=== PATIENT | female | born 1975 | race Caucasian/White ===

== ENCOUNTER 2022-05-07 01:02 | Day surgery (SDC) | payer OTHER, SELFPAY ==
[2022-04-30 14:42] VITALS: BMI 26.5
--- NOTE | 2022-04-30 14:43 | PC.NURSE ---
Report to the Outpatient Waiting Room, entrance under the green pavilion located off [facility], at time _0900_ on date _[id number]_. Planned Procedure Time: _1100_. Time changes happen often and if your time is changed the preop area will call you the afternoon before. - You and your visitor will be asked to self-screen and do not enter if you have any COVID symptoms. - We encourage only one visitor and NO visitors under age 16 are allowed at this time. Your visitor will receive communication by the phone number that is given day of service. - The patient visitor is requested to social distance or may leave the building when not with patient due to restrictions. - A mask is required within the hospital. Patients may have clear liquids (water, carbonated beverages, clear teas, apple juice) until 3 hours prior to surgery with a maximum of 20 ounces. - No food from midnight until time of surgery Take the following medications with a SIP of water the morning of surgery: ____Tramadol if needed. Medications to discontinue per physician ____None Date to take last dose Please no make-up, nail barbadian, hairspray, perfume, deodorant, or body powder the day of surgery. No jewelry (including any body piercings) or valuables the day of surgery, leave them at home. Please take a shower or bath the night before, or the morning of, surgery with an antibacterial soap. Wear comfortable, loose fitting clothing. - Jewelry must be removed prior to entering the operating room. Rings and piercings that are not removed may be cut off. - The hospital will not accept responsibility for valuables. - Please leave all valuables, including medications, at home the day of surgery. If you are going home after surgery, a licensed route sales delivery driver must drive you home. - NO public transportation without another adult. - We recommend that an adult stay with you for 24 hours following discharge. - We also recommend that you do not drive, make important decision, drink alcoholic beverages, or take any drugs that were not prescribed by your health care provider for at least 24 hours after your discharge time. Follow any additional instructions given to you from your surgeon. If you or anyone in your household have experienced Covid symptoms in the past week, please notify your surgeon or the nurse liaison at the phone number below for possible testing. Telephone instructions given to __Patient___and asked if any additional questions and then verbalized understanding. Patient advised to call surgeon office or pre surgery nurse liaison [phone] if any additional questions.
--- NOTE | 2022-05-06 13:45 | P.PNAN_ITS ---
Anes - Initial Pre Proc Eval Procedure: Operation Date: 05/07/22 11:00 Proposed Procedures p Abdominoplasty with Abdominal Liposuction - Guy Mai MD Date/Time: 05/06/22 13:45 Surgeon: Guy Mai MD Pre Op Diagnosis: Skin Laxity Patient Data Age: 46 Gender: F Height: 1.6 m Weight: 68 kg Allergies Allergy/AdvReac Type Severity Reaction Status Date / Time pregabalin [From Lyrica] AdvReac Mild Nausea and Verified 05/07/22 09:05 Vomiting Home Medications Medication Instructions Recorded Confirmed Type tramadol 50 mg tablet 50 mg PO Q6H PRN Pain 01/27/22 04/30/22 History cyclobenzaprine 10 mg tablet 10 mg PO BID PRN Muscle Spasm 04/30/22 04/30/22 History Patient hx anesthesia problems: none Family hx anesthesia problems: none Results Review: All pre-operative results and documents have been reviewed as part of the pre- operative evaluation. FOR[facility]LY [facility] Past Medical History Medical History (Updated 05/06/22 @ 13:46 by Kameron Lacy MD) Chronic neck pain Skin laxity Surgical History Surgical History (Updated 01/27/22 @ 16:55 by Shameka Saenz) History of hysterectomy History of tonsillectomy Family History Family History (Updated 01/27/22 @ 16:56 by Shameka Saenz) Mother Rheumatoid arthritis Social History Social History (Updated 01/27/22 @ 16:56 by Shameka Saenz) Smoking status: Never smoker Alcohol intake: never Living arrangements: with family Spiritual care concerns: No Anes - Eval Final PreProcedure Day of Procedure 05/06/22 13:45 Patient weight: overweight Heart: regular rate and rhythm Lungs: clear to auscultation and normal air movement Airway: Mallampati scale class II Neurological: alert and oriented Last oral intake: >/= 8 hours ASA classification: II Emergent: no Anesthetic plan: proceed Anesthesia type and monitoring: general LMA and ETT Results Review: All pre-operative results and documents have been reviewed as part of the pre- operative evaluation. Informed Consent: The patient's anesthetic plan and its attendant risks and benefits were discussed with the patient/family/POA. Questions were solicited and answers provided to the satisfaction of the patient/family/POA.
[2022-05-07] VITALS (11 sets, daily range): BP systolic 102–133; BP diastolic 61–97; PULSE 87–130; RESP 12–22; TEMP 36.4–36.7; O2SAT 95–100; BMI 27.1
[2022-05-07] MEDS: LACTATED RINGERS 1,000 ML 30 ML IV CONT ×2 (09:20→13:24)
--- NOTE | 2022-05-07 09:38 | WPDHPUPDATE1 ---
History and Physical Update Update Date/Time: 05/07/22 09:38 History and Physical has been reviewed, including an updated exam of the patient. There are NO changes in the patient's condition. Risks, benefits, and alternatives have been discussed and questions answered. Patient agrees to proceed with procedure.
--- NOTE | 2022-05-07 09:38 | W.PM.PROC2 ---
Procedure Note - Detailed Date of Procedure 05/07/22 Pre-op Diagnosis Skin Laxity Post-op Diagnosis Same Procedure Performed Progressive tension abdominoplasty with suction lipectomy Surgeon Guy Mai MD Anesthesia General Findings Lipoaspirate 2350 cc Tissue removed 1883.6 grams Description of Procedure They are here today for abdominoplasty. Previously and again today the risks, benefits, alternatives were discussed in extensive detail. I wanted them to be very realistic about the risks involved as well as expectations. We discussed aftercare and what to monitor for. I was very upfront about the risks of wound breakdown leading to loss of skin, open wounds, and need for additional procedures with permanent abdominal deformity. We discussed DVT/PE risks and management. Made sure answered all of their questions to their satisfaction today and consent was obtained. They were marked in the preoperative holding area with their verification. The patient was taken to the operating room placed supine on the operating table. Anesthesia was provided by anesthesiology. A Longo catheter was started. They were prepped and draped in a standard sterile fashion. A surgical time-out was taken. I placed the patient in a flexed position to verify the upper and lower markings would reach. I then placed supine. A thorough abdominal examination was completed. Stab incisions were made and tumescent solution infiltrated. Once adequate time was allowed for hemostasis a 5mm basket cannula was utilized to complete suction lipectomy based on S.A.F.E. technique in multiple planes and passes. There were turned to bilateral lateral decubitus position with care taken to protect them for injury during this process. Suction lipectomy continued to result based on pre-operative planning, intra-operative observation, and rolling pinch test which were in full agreement. A 10 blade was used to make the upper incision. I continued dissection down to the level of fascia. Elevated just what was necessary for repair of the diastasis. I then again flexed the bed to verify the upper skin flap would reach the lower markings without tension. Once verified I placed her supine once again and a 10 blade used to make the lower incision. I elevated up to level the umbilicus and left the umbilicus intact on a well-vascularized stalk. The intervening tissue was removed. A 2 mm blunt cannula with 0.5% bupivicaine was injected deep to the fascia bilaterally. I plicated the diastasis recti using 0 PDO stratafix barbed suture. This was in 2 separate layers using 2 separate sutures as well. I repaired around the umbilicus leaving plenty of room for well-vascularized stalk of the umbilicus with 2-0 PDS. I also repaired lateral to the rectus using two layers of 0 PDO stratafix. The patient was flexed and starting from superior to inferior began plication using 2-0 Vicryl to obliterate all space in a standard progressive tension fashion. At the umbilicus I marked out the location of the skin and inset this with 3-0 Monocryl and 4-0 Vicryl. I continued the remainder of the plication using 2-0 Vicryl until I reached my lower planned scar line. I trimmed any excess skin of the upper flap making sure this was a tension-free closure. I then approximated using a 3 point suture with 2-0 Vicryl followed by 3-0 stratafix ,running subcuticular 4-0 Monocryl, and tissue glue. Fluffs and an abdominal binder were placed. The patient was transferred to the bed in a flexed position. Awoken and taken to the PACU without difficulty. All instrument and sponge counts were correct at the end of the case. Estimated Blood Loss 40 Drains No Packing No Pathology None sent Complications No immediate complications Condition Stable Disposition PACU
[2022-05-07] MEDS: ceFAZolin 2 GM/D5W 50 ML 2 GM/50 ML BAG IVPB (09:41)
[2022-05-07] MEDS: TRANEXAMIC ACID 1,000MG/ISO100 1,000 MG/100 ML BAG 200 MG IVPB (09:51)
[2022-05-07 10:15] LABS: Urine Cotinine NEGATIVE
[2022-05-07] MEDS: LACTATED RINGERS IRRIG 1,000 ML, LIDOCAINE HCL 1% LOCAL INJ 50 ML, EPINEPHrine HCL INJ ... INFILTRATE ×2 (10:50→12:56)
[2022-05-07] MEDS: BUPIVACAINE/EPINEPHRINE 0.25% 10 ML VIAL 60 ML INFILTRATE (10:54)
[2022-05-07] MEDS: fentaNYL CITRATE INJ (*CRX) 100 MCG/2 ML VIAL 25 MCG IV PUSH ×8 (13:40→14:29)
--- NOTE | 2022-05-07 14:47 | PC.NURSE ---
Patient transferred to post room #284 via ( bed ). Support person present. Oriented to unit, room, information board, rooming in, admission packet and security measures. Patient verbalizes understanding.
[2022-05-07] MEDS: MORPHINE SULFATE (*CRX) 2 MG/ML INJ IV PUSH (15:26)
[2022-05-07] MEDS: LACTATED RINGERS 1,000 ML 125 ML IV CONT (15:31)
[2022-05-07] MEDS: oxyCODONE/ACETAMINOPHEN (*CRX) 5-325 MG TABLET PO ×2 (16:21→22:22)
[2022-05-07] MEDS: carisoprodoL (*CRX) 350 MG TABLET PO ×2 (17:25→23:37)
[2022-05-07] MEDS: GABAPENTIN 300 MG CAPSULE PO (17:25)
[2022-05-07] MEDS: KETOROLAC 15 MG/ML VIAL (*BKC) IV PUSH (20:49)
[2022-05-07] MEDS: DOCUSATE SODIUM 100 MG CAPSULE PO (20:49)
[2022-05-07] MEDS: ENOXAPARIN 40 MG/0.4 ML SYRINGE SUB-Q (20:50)
[2022-05-07] MEDS: ONDANSETRON INJ 4 MG/2 ML VIAL IV PUSH (21:06)
[2022-05-08] VITALS: BP 110/74; PULSE 106; RESP 18; TEMP 36.8; O2SAT 100
[2022-05-08 04:30] VITALS: BP 89/62; PULSE 110; RESP 18; TEMP 36.8; O2SAT 99
[2022-05-08] MEDS: oxyCODONE/ACETAMINOPHEN (*CRX) 5-325 MG TABLET PO ×3 (04:41→16:03)
[2022-05-08] MEDS: carisoprodoL (*CRX) 350 MG TABLET PO ×2 (05:31→11:41)
--- NOTE | 2022-05-08 06:20 | WPDPN ---
Progress Note: A&P Assessment and Plan (1) Skin laxity: Code(s): L57.4 - Cutis laxa senilis Status: Acute Assessment and Plan: Doing well after progressive tension abdominoplasty with suction lipectomy. Will discharge home. I will see her back. Today we had a lengthy discussion about the care. Activity limitations. What to monitor for. What is an emergency and when to proceed to ER/dial 911. She understands with all other questions or concerns call us at any time. I will see her back. Subjective Date/time seen: 05/08/22 06:20 Interval history: She is doing well after progressive tension abdominoplasty with suction lipectomy. No fevers or chills. No nausea vomiting. No shortness of breath. Chest pain. No calf tenderness. She has ambulated to the restroom and been able to urinate. Review of Systems Review of Systems: All systems reviewed & are unremarkable except as noted in HPI and below Exam Narrative: Alert oriented no obvious distress Respiratory unlabored Abdomen soft. No signs of infection. No hematoma. No seroma. Good color and capillary refill. No calf tenderness. Negative Homans. Objective Data Vital Signs Vital Signs: Vital Signs - 24 hr 05/07/22 08:55 05/07/22 13:24 05/07/22 13:35 Temperature 36.7 C 36.4 C Pulse Rate 87 130 H 128 H Respiratory Rate 16 20 22 H Blood Pressure 133/97 H 106/63 106/61 Pulse Oximetry 100 99 100 Oxygen Delivery Room Air Simple Face Mask Simple Face Mask Oxygen Flow Rate 8 8 05/07/22 13:45 05/07/22 14:00 05/07/22 14:15 Temperature Pulse Rate 115 H 116 H 106 H Respiratory Rate 17 19 13 Blood Pressure 107/70 115/68 104/71 Pulse Oximetry 99 97 95 Oxygen Delivery Simple Face Mask Room Air Room Air Oxygen Flow Rate 10 05/07/22 14:30 05/07/22 14:37 05/07/22 14:50 Temperature 36.5 C Pulse Rate 107 H 117 H 106 H Respiratory Rate 13 12 14 Blood Pressure 105/75 102/72 108/73 Pulse Oximetry 95 97 98 Oxygen Delivery Room Air Room Air Oxygen Flow Rate 05/07/22 16:31 05/07/22 16:31 05/07/22 20:00 Temperature 36.7 C Pulse Rate 106 H 108 H Respiratory Rate 16 18 Blood Pressure 115/77 Pulse Oximetry 100 99 Oxygen Delivery Room Air Room Air Oxygen Flow Rate 05/07/22 20:00 05/08/22 00:00 05/08/22 00:00 Temperature 36.6 C 36.8 C Pulse Rate 108 H 106 H 106 H Respiratory Rate 18 18 18 Blood Pressure 107/75 110/74 Pulse Oximetry 99 100 100 Oxygen Delivery Room Air Oxygen Flow Rate 05/08/22 04:30 05/08/22 04:30 Temperature 36.8 C Pulse Rate 110 H 110 H Respiratory Rate 18 18 Blood Pressure 89/62 L Pulse Oximetry 99 99 Oxygen Delivery Room Air Oxygen Flow Rate Intake/Output Intake/Output: Intake & Output 05/05/22 05/06/22 05/07/22 05/08/22 23:59 23:59 23:59 23:59 Intake Total 950 Output Total 450 Balance 500 Meds/Results Medications: Active Medications Generic Name Dose Route Start Last Admin Trade Name Freq PRN Reason Stop Dose Admin Carisoprodol 350 mg 05/07/22 18:00 05/08/22 05:31 Carisoprodol (*Crx) 350 Mg Tablet PO 350 mg Q6HR HERMINIA Administration Cyclobenzaprine HCl 10 mg 05/07/22 14:39 Cyclobenzaprine Hcl 10 Mg Tablet PO BID PRN Muscle Spasm Diazepam 5 mg 05/07/22 13:11 Diazepam (*Crx) 5 Mg Tablet PO TID PRN Anxiety Docusate Sodium 100 mg 05/07/22 21:00 05/07/22 20:49 Docusate Sodium 100 Mg Capsule PO 100 mg Q12HR HERMINIA Administration Enoxaparin Sodium 40 mg 05/07/22 20:00 05/07/22 20:50 Enoxaparin 40 Mg/0.4 Ml Syringe SUB-Q 40 mg DAILY HERMINIA Administration Gabapentin 300 mg 05/07/22 17:00 05/07/22 17:25 Gabapentin 300 Mg Capsule PO 300 mg TID HERMINIA Administration Lactated Ringer's 1,000 mls @ 125 mls/hr 05/07/22 13:15 05/07/22 15:31 Lr - Lactated Ringers Iv IV CONT 125 mls/hr .Q8H HERMINIA Administration Ketorolac Tromethamine 15 mg 05/07/22 13:11 05/07/22 20
--- NOTE | 2022-05-08 06:24 | P.DS_ITS ---
DS: Admitting Diagnosis Discharge Date 05/08/2022 Admitting Diagnosis Skin laxity DS: Discharge Diagnosis Discharge Diagnosis (1) Skin laxity: Code(s): L57.4 - Cutis laxa senilis Status: Acute DS: Summary Hospital Course Hospital Course: She underwent progressive tension abdominoplasty with suction lipectomy. Postoperatively monitor. She has done very well. Pain controlled. Ambulating. Tolerating diet. Will plan for discharge home. Time Spent with Patient Time attestation: Total time spent providing and/or coordinating discharge services: Exam Narrative: Alert oriented no obvious distress Respiratory unlabored Abdomen soft. No signs of infection. No hematoma. No seroma. Good color and capillary refill. No calf tenderness. Negative Homans. DS: Data Data Completed and Pending Labs on day of discharge: Labs from last 24 hours 05/07/22 09:04 Cotinine Negative Discharge Plan Discharge Patient Disposition: Home, Self-Care Discharge Instructions: POST OPERATIVE DISCHARGE INSTRUCTIONS GUY MAI M.D. [facility] [address] [place] [address] * No driving for 24 hours after anesthesia and while you are taking pain medication. * Take all prescribed medication as directed * Diet as tolerated. * No lifting or activity that raises blood pressure for 48 hours. * Regular walking / ambulation. * May shower 24 hours after surgery. Once you shower do not take pain medication before showering as the combination of medication and heat may cause you to feel dizzy or pass out. * No pools or tubs for 2 weeks. * Slowly stand up straight as tolerated. * No straining or lifting more than 20 pounds. * If no bowel movement within 24 hours may use laxative. * Call with any questions or concerns. * Dressing Care: Continue abdominal binder / foam 23 hours per day. If you have any questions or concerns, please call the office . If it is after hours you will be directed to the weight and balance control agent exchange. Shortness of breath, chest pain, or other medical emergency dial 911 / proceed to the Emergency Room. Stand Alone Forms: General Discharge Instructions Follow-up/Referrals: Guy Mai MD [Physician] - 1 Week Discharge Medications: Continued tramadol 50 mg tablet 50 mg PO Q6H PRN (Reason: Pain) cyclobenzaprine 10 mg tablet 10 mg PO BID PRN (Reason: Muscle Spasm)
[2022-05-08 07:00] VITALS: BP 54/31; PULSE 83; RESP 18; TEMP 36.8; O2SAT 97
[2022-05-08] MEDS: GABAPENTIN 300 MG CAPSULE PO (08:55)
[2022-05-08] MEDS: DOCUSATE SODIUM 100 MG CAPSULE PO (08:55)
--- NOTE | 2022-05-08 08:57 | WPDANESPN ---
Anes - Prog Note Post-Op Date/Time: 05/08/22 08:57 Cardiovascular status: normal Respiratory status: normal Airway patency: baseline Mental status: baseline Post-Op hydration status: normal Vital Signs: Last Vital Signs Temp 36.8 C 05/08/22 07:00 Pulse 83 05/08/22 07:00 Resp 18 05/08/22 07:00 BP 54/31 L 05/08/22 07:00 Pulse Ox 97 05/08/22 07:00 O2 Del Method Room Air 05/08/22 04:30 O2 Flow Rate 10 05/07/22 13:45 Pain Score (VAS): 310 I/O: Intake & Output 05/07/22 05/08/22 05/08/22 23:59 07:59 15:59 Intake Total 400 Output Total 450 Balance -50 05/07/22 09:04 Cotinine Negative Post-procedural complaints: nausea (Resolved this morning) Patient Feedback: Patient satisfied with anesthetic care.
[2022-05-08 10:30] VITALS: BP 94/65; PULSE 109
[2022-05-08 12:30] VITALS: BP 93/62; PULSE 102
--- NOTE | 2022-05-10 14:31 | PHAR ---
Percocet 5mg dose administered 05/08 at 10:29 should have been #2 tablets per OB Director. An additional tablet charged to patient. This resolves a supply discrepancy
== END 2022-05-08 17:10 | disposition home or self-care (01) ==
LOC: ANHSURGERY 09:39 → ANHOB2 14:58
PROVIDERS: Visit Provider Surgery Plastic and Reconstructive Surgery
PROC: (CPT 15830; principal; 2022-05-07 11:00)
DX: Z41.1 Encounter for cosmetic surgery (principal); L57.4 Cutis laxa senilis
CPT/HCPCS: 15830; 15847; 15877; 80307; 99199; A9270; J0171; J0690; J1100; J1650; J1885; J2250; J2270; J2370; J2405; J2704; J3010; J7120

== ENCOUNTER 2022-06-12 13:27 | Emergency (ER) | payer SELFPAY ==
--- NOTE | 2022-06-12 13:30 | ED.FEMALEGU ---
HPI - Female Genitourinary General Chief complaint: Urogenital-Female Stated complaint: Possible UTI Time Seen by Provider: 06/12/22 13:47 Source: patient and RN notes reviewed Mode of arrival: ambulatory Limitations: no limitations History of Present Illness HPI Narrative: 46-year-old female presents concern for urinary tract infection. She reports dysuria, frequency for 4-5 days. She reports she took azo earlier this morning. She denies fever, aches, chills, sweats. Reports she has abdominal discomfort from her recent abdominal surgery, muscle tightening and skin removal. MD elicited complaint: UTI Related Data Allergies Allergy/AdvReac Type Severity Reaction Status Date / Time pregabalin [From Lyrica] AdvReac Mild Nausea and Verified 06/12/22 13:46 Vomiting Review of Systems Review of Systems: CONSTITUTIONAL: Denies malaise, chills, sweats, or fever. CARDIOVASCULAR: Denies chest pain, palpitations, or edema. RESPIRATORY: Denies cough or dyspnea. GASTROINTESTINAL: Denies abdominal pain, nausea, vomiting, diarrhea GENITOURINARY: Reports dysuria, frequency denies urgency, suprapubic pressure. Denies flank pain or hematuria. SKIN: Denies rash or itching. MUSCULOSKELETAL: Denies back pain or myalgia. All systems reviewed & are unremarkable except as noted in HPI and below PMFSH Past Medical History Medical History (Updated 06/12/22 @ 13:56 by Katherin Velasquez NP) Chronic neck pain Skin laxity Surgical History Surgical History (Updated 01/27/22 @ 16:55 by Shameka Saenz) History of hysterectomy History of tonsillectomy Family History Family History (Updated 01/27/22 @ 16:56 by Shameka Saenz) Mother Rheumatoid arthritis Social History Social History (Updated 01/27/22 @ 16:56 by Shameka Saenz) Smoking status: Never smoker Alcohol intake: never Spiritual care concerns: No Comments At time of signature, agree with nursing past medical, surgical, social and family history. There is no relevant family history pertinent to the presenting complaint Exam Narrative: GENERAL: Well-appearing, well-nourished, and in no acute distress. HEAD: Normocephalic. EYES: PERRLA, conjunctivae clear. NECK: Supple. No lymphadenopathy CHEST: Clear to auscultation. No respiratory distress. HEART: Regular rate and rhythm. ABDOMEN: Soft, nontender upon palpation, nondistended, normal active bowel sounds, no palpable or pulsatile masses, no guarding. No CVA tenderness SKIN: Warm, dry, no rash. NEURO: Alert and oriented x3. PSYCH: Normal mood and affect Course Course Emergency Course: Patient is aware of diagnosis, understands and agrees to treatment plan. Anticipatory guidance given. Patient agrees to follow-up as directed and is aware of reasons to seek care at the emergency department. Portions of this record may have been created with voice recognition software Level of Care: Express Care Visit Vital Signs Vital signs: Reviewed. MDM - Female Genitourinary MDM Narrative Medical decision making narrative: Exam findings and UA show no acute concerns or changes; patient is non-toxic appearing and is in no distress. Patient is appropriate for outpatient treatment and follow-up. Differential Diagnosis Differential diagnosis: Likely urinary tract infection and cystitis Critical Care Time Critical Care Time Critical Care Time: No Discharge Plan Discharge Clinical Impression: Symptoms of urinary tract infection Patient Disposition: Home, Self-Care Condition: Stable Instructions: Antibiotic Form, Urinary Tract Infection in Women (ED) Additional Instructions: We will send a urine culture to the lab; if the culture identifies an organism that the prescribed antibiotic will not treat, you will receive a phone call from an urgent care staff member and an appropriate antibiotic will be prescribed. -Your symptoms should begin to improve within a day of starting antibiotics. But you sh
[2022-06-12 13:37] VITALS: BP 109/77; PULSE 116; RESP 18; TEMP 36.3; O2SAT 99
== END 2022-06-12 14:00 | disposition home or self-care (01) ==
PROVIDERS: Emergency Provider Nurse Practitioner
DX: R35.0 Frequency of micturition (principal); R30.0 Dysuria; Z98.890 Other specified postprocedural states
CPT/HCPCS: 81003; 87077; 87086; 87088; 87186; 99213; G0463

== ENCOUNTER 2023-01-22 12:25 | Emergency (ER) | payer BC, SELFPAY ==
--- NOTE | 2023-01-22 12:40 | ED.FEMALEGU ---
HPI - Female Genitourinary General Chief complaint: Urogenital-Female Stated complaint: uti symptoms Time Seen by Provider: 01/22/23 12:40 Source: patient Mode of arrival: ambulatory Limitations: no limitations History of Present Illness HPI Narrative: Sofia is a 47-year-old female patient presenting to clinic today with complaints of urinary symptoms. She reports she has had burning with urination, frequency, and urgency over the past 2-3 days. Denies any vaginal discharge. History of hysterectomy. Related Data Home Medications Medication Instructions Recorded Confirmed tramadol 50 mg tablet 50 mg PO DAILY 01/22/23 01/22/23 Allergies Allergy/AdvReac Type Severity Reaction Status Date / Time pregabalin [From Lyrica] AdvReac Mild Nausea and Verified 01/22/23 13:02 Vomiting Review of Systems Review of Systems: Pertinent positives per HPI. Patient denies any fever, chills, rash, headache, visual changes, dizziness, cough, runny nose, sore throat, shortness of breath, chest pain, palpitations, nausea, vomiting, diarrhea, constipation, abdominal pain. PMFSH Past Medical History Medical History Chronic neck pain Skin laxity Surgical History Surgical History History of hysterectomy History of tonsillectomy Family History Family History Mother Rheumatoid arthritis Social History Social History Smoking status: Never smoker Alcohol intake: never Living arrangements: with family Spiritual care concerns: No Comments At the time of my signature, I reviewed and agree with the nursing past medical, surgical, social, and family history. There is no relevant family history pertinent to the patient complaint. Exam Narrative: General: Well-developed, well nourished, in no apparent distress. Head: Normocephalic, atraumatic. Cardio: Regular rate and rhythm, s1 and s2 normal, no murmur appreciated. Resp: Clear to auscultation bilaterally, no rhonchi, rales, wheezing or rubs. Abdomen: Soft, pliable, bowel sounds present in all quadrants, non-tender to palpation, no organomegly, no CVAT tenderness. Course Course Emergency Course: Portions of this record may have been created with voice recognition software. Level of Care: Express Care Visit Vital Signs Vital signs: Vital signs reviewed MDM - Female Genitourinary MDM Narrative Medical decision making narrative: At the time of visit patient is resting comfortably on the exam table. UA dip is negative for any sign of infection however she does have 2+ blood in her urine. Will send in prescription for some Pyridium and send the urine for culture. Supportive measures were discussed with the patient she voiced understanding discharge instructions agrees to treatment plan. Differential Diagnosis Differential diagnosis: Likely urinary tract infection and cystitis Discharge Plan Discharge Clinical Impression: Dysuria Hematuria Qualifiers: Hematuria type: unspecified type Qualified Code(s): R31.9 - Hematuria, unspecified Patient Disposition: Home, Self-Care Condition: Stable Instructions: Antibiotic Form, Hematuria (ED), Dysuria (ED), Urinary Urgency and Frequency (DC) Additional Instructions: UA is positive for 2+ blood. No sign of infection. We will send urine for culture. Take Pyridium as prescribed Increase fluids and stay well hydrated Wipe front to back. May use wet wipes. Avoid tub baths If sexually active- pee before and after intercourse. Wear cotton panties Avoid tight clothing up against the genitals Follow up with your PCP in 1 week if symptoms persist. Prescriptions: New phenazopyridine [Pyridium] 200 mg tablet 200 mg PO TID PRN (Reason: pain
[2023-01-22 12:50] VITALS: BP 125/90; PULSE 81; RESP 18; TEMP 36.8; O2SAT 100
== END 2023-01-22 13:21 | disposition home or self-care (01) ==
PROVIDERS: Emergency Provider Nurse Practitioner Family; PCP Family Medicine
DX: N39.0 Urinary tract infection, site not specified (principal); B96.20 Unspecified Escherichia coli [E. coli] as the cause of diseases classified elsewhere
CPT/HCPCS: 81003; 87077; 87086; 87186; 99213; G0463